=== PATIENT | female | born 2000 | race Caucasian/White ===

== ENCOUNTER 2024-04-21 21:04 | Emergency (ER) | payer MEDICAID ==
[~2024-04-21] VITALS: Ht 160 cm; Wt 55.0 kg
[2024-04-21 21:07] VITALS: TEMP 37; O2SAT 99
[2024-04-21] MEDS: METHYLPREDNISOLONE SOD SUCC 125MG/2ML (ACT-O-VIAL) IV ONE (21:57)
[2024-04-21] MEDS: FAMOTIDINE 20MG/2ML VIAL IV ONE (21:57)
[2024-04-21 22:40] LABS: UCG SCREEN NEGATIVE
[2024-04-21 22:41] LABS: UCG KIT LOT# 888041
[2024-04-21] MEDS ORDERED: EPIN0.3P3 IM (23:51)
[2024-04-21] MEDS ORDERED: P20 MT (23:51)
[2024-04-21] MEDS ORDERED: DIPH25CA83 MT (23:51)
[2024-04-22 00:20] VITALS: BP 98/55; PULSE 87; RESP 18; O2SAT 100
== END 2024-04-22 00:21 | disposition home or self-care (01) ==
LOC: ER 21:04
DX: T78.1XXA Other adverse food reactions, not elsewhere classified, initial encounter (principal); Z79.899 Other long term (current) drug therapy; X58.XXXA Exposure to other specified factors, initial encounter
CPT/HCPCS: 81025; 96374; 96375; 99284; J3490; J2919; Z7610